=== PATIENT | male | born 1945 | race Caucasian/White ===

== ENCOUNTER 2017-03-31 17:28 | Inpatient (IN) | payer OTHER, MEDICARE ==
[~2017-03-31] VITALS: Ht 172.7 cm; Wt 59.1 kg
[2017-03-31] VITALS (14 sets, daily range): BP systolic 78–143; BP diastolic 50–78; PULSE 56–85; RESP 15–22; TEMP 97.8; O2SAT 98–100
[2017-03-31] MEDS ORDERED: SODIUM CHLOR 0.9% 1000 ML INJ 1,000 ML IV ONE ×4 (17:40→18:45)
[2017-03-31] MEDS: HEPARIN SODIUM - IV 10,000 UNITS/10 ML VIAL IV STA ×2 (17:40→18:11)
[2017-03-31] MEDS ORDERED: SODIUM CHLORIDE 0.9% FLUSH 10 ML FLUSH IVF PRN ×2 (17:45)
--- NOTE | 2017-03-31 17:53 | PD ---
HPI Chief Complaint: COLLAPSED Time Seen by Provider: 17:40 History of Present Illness HPI WHILE AMBULATING WITH GIRLFRIEND PATIENT SEEMED TO JUST COLLAPSE, EMS RESPONDED AND DID CHEST COMPRESSIONS ON ARRIVAL, AND BROUGHT INTO ER Allergies-Medications (Allergen,Severity, Reaction): Coded Allergies: UNOBTAINABLE (Unverified , 03/31/17) S/P ARREST, UNABLE TO SPEAK Review of Systems ROS Limitations: Clinical Condition Except as stated in HPI: all other systems reviewed are Neg Physical Exam Narrative GENERAL: SKIN: Warm and dry. HEAD: Atraumatic. Normocephalic. EYES: Pupils equal and round. No scleral icterus. No injection or drainage. ENT: No nasal bleeding or discharge. Mucous membranes pink and moist. NECK: Trachea midline. No JVD. CARDIOVASCULAR: Regular rate and rhythm. RESPIRATORY: No accessory muscle use. Clear to auscultation. Breath sounds equal bilaterally. GASTROINTESTINAL: Abdomen soft, non-tender, nondistended. Hepatic and splenic margins not palpable. MUSCULOSKELETAL: Extremities without clubbing, cyanosis, or edema. No obvious deformities. NEUROLOGICALINITIALLY NOT RESPONSIVE BUT BREATHING SPONT, No obvious cranial nerve deficits. Motor grossly within normal limits. Five out of 5 muscle strength in the arms and legs. Normal speech. PSYCHIATRIC: Appropriate mood and affect; insight and judgment normal. Data Data Last Documented VS Vital Signs Date Time Temp Pulse Resp B/P Pulse Ox O2 Delivery O2 Flow Rate FiO2 03/31/17 17:30 98 3.00 Orders Troponin I (03/31/17 17:40) Ckmb (Isoenzyme) Profile (03/31/17 17:40) Complete Blood Count With Diff (03/31/17 17:40) I-Stat Profile (03/31/17 17:40) I-Stat Creatinine (03/31/17 17:40) Calcium (03/31/17 17:40) Magnesium (Mg) (03/31/17 17:40) Prothrombin Time / Inr (Pt) (03/31/17 17:40) Act Partial Throm Time (Ptt) (03/31/17 17:40) B-Type Natriuretic Peptide (03/31/17 17:40) Electrocardiogram (03/31/17 17:40) Oxygen Administration (03/31/17 17:40) Iv Access Insert/Monitor (03/31/17 17:40) Oximetry (03/31/17 17:40) Sodium Chlor 0.9% 1000 Ml Inj (Ns 1000 M (03/31/17 17:40) Sodium Chloride 0.9% Flush (Ns Flush) (03/31/17 17:45) Chest, Single Ap (03/31/17 17:40) Electrocardiogram (03/31/17 17:40) Sodium Chlor 0.9% 1000 Ml Inj (Ns 1000 M (03/31/17 17:40) Sodium Chloride 0.9% Flush (Ns Flush) (03/31/17 17:45) Heparin Inj (Heparin Inj) (03/31/17 17:40) Naloxone Inj (Narcan Inj) (03/31/17 18:00) Ct Brain W/O Iv Contrast(Rout) (03/31/17 ) Sodium Chlor 0.9% 1000 Ml Inj (Ns 1000 M (03/31/17 18:15) ^ Infusion (03/31/17 ) Dopamine Inj Premix (Dopamine Inj Premix (03/31/17 18:15) Terbutaline Inj (Brethine Inj) (03/31/17 18:15) Sodium Chlor 0.9% 1000 Ml Inj (Ns 1000 M (03/31/17 18:45) Labs Laboratory Tests Test 03/31/17 17:35 White Blood Count 11.3 TH/MM3 Red Blood Count 4.36 MIL/MM3 Hemoglobin 12.7 GM/DL Bedside Hemoglobin 13.3 G/DL Hematocrit 38.0 % Bedside Hematocrit 39.0 % Mean Corpuscular Volume 87.0 FL Mean Corpuscular Hemoglobin 29.2 PG Mean Corpuscular Hemoglobin 33.6 % Concent Red Cell Distribution Width 14.3 % Platelet Count 232 TH/MM3 Mean Platelet Volume 8.6 FL Neutrophils (%) (Auto) 73.3 % Lymphocytes (%) (Auto) 17.9 % Monocytes (%) (Auto) 7.7 % Eosinophils (%) (Auto) 0.7 % Basophils (%) (Auto) 0.4 % Neutrophils # (Auto) 8.3 TH/MM3 Lymphocytes # (Auto) 2.0 TH/MM3 Monocytes # (Auto) 0.9 TH/MM3 Eosinophils # (Auto) 0.1 TH/MM3 Basophils # (Auto) 0.0 TH/MM3 CBC Comment DIFF FINAL Differential Comment Prothrombin Time 11.4 SEC Prothromb Time International 1.0 RATIO Ratio Activated Partial 24.8 SEC Thromboplast Time Bedside Sodium 139 MMOL/L Bedside Potassium 3.6 MMOL/L Bedside Chloride 101 MMOL/L Bedside Blood Urea Nitrogen 17 MG/DL Bedside Creatinine 2.6 MG/DL Bedside Glucose 186 MG/DL [facility] Medical Decision Making Medical Screen Exam Complete: Yes Emergency Medical Condition: Yes Medical Record Reviewed: Yes Interpretation(s) NSR 82, [place] ON V1-V3 MOST LIKE J POINT ELEVATION, NO OPPOSITE ST DEPRESSIONS NOTED. Differential Diagnosis AMS V OPIATE OD V STEMI V ICH V ELECTROLYTE ABNL Narrative Course PATIENT WAS SIGNED OUT TO DR CHOWDHURY PENDING LABS/AND REEVALUATION (PATIENT HAS A GCS OF 14 TO 15 AFTER NARCAN GIVEN, AND THUS IS NOT A CODE COOL CANDIDATE) Critical Care Narrative CRITICAL CARE NOTE: With evaluation of the patient, labs, EKG, receipt of radiologic studies, administration of medications, reevaluation the patient and discussion of the patient with the admitting physicians, the total critical care time was [60] minutes. Time to perform other separately billable procedures was not included in the critical care time. Physician Communication Physician Communication CALLED STEMI ALERT AND DR DURANT CAME TO BEDSIDE, REVIEWED EKG AND DECIDED TO HOLD OFF ON CATH FOR NOW...PATIENT WAS MORE AWARE AFTER NARCAN GIVEN, PT CONTINUES TO BREATH SPONTANEOUSLY AND GUARD HIS AIRWAY WELL, NOW ABLE TO SAY HIS NAME (CODEY) BUT IS STILL A BIT SLOW IN RESPONDING Diagnosis Primary Impression: S/P CARDIOPULMONRY ARREST WITH ROSC Admitting Information Admitting Physician Requests: Admit Stewart Saha MD Mar 31, 2017 17:53
[2017-03-31] MEDS ORDERED: NALOXONE HCL 2 MG/2 ML VIAL IV PUSH ONE (18:00)
--- NOTE | 2017-03-31 18:01 | RADRPT ---
EXAM DATE/TIME: 03/31/2017 17:33 [facility] COMPARISON: No previous studies available for comparison. INDICATIONS : Stemi alert. MEDICAL HISTORY : None. SURGICAL HISTORY : None. ENCOUNTER: Initial ACUITY: 1 day PAIN SCORE: Non-responsive. LOCATION: Bilateral chest FINDINGS: A single view of the chest demonstrates the lungs to be symmetrically aerated without evidence of mas s, infiltrate or effusion. Tortuous thoracic aorta. The cardiomediastinal contours are unremarkable. Osseous structures are intact. CONCLUSION: No acute disease. Aaron Mcghee MD on March 31, 2017 at 17:59 Board Certified Radiologist. This report was verified electronically.
[2017-03-31] MEDS ORDERED: DOPamine INJ PREMIX 500 ML IV SCH (18:15)
[2017-03-31] MEDS ORDERED: TERBUTALINE INJ 1 MG/ML AMP SQ PRN (18:15)
[2017-03-31 18:24] LABS: I-STAT POTASSIUM 3.6 MMOL/L (3.5-4.9); I-STAT SODIUM 139 MMOL/L (138-146)
[2017-03-31 18:27] LABS: AUTOMATED NEUTROPHIL # 8.3 TH/MM3 (1.8-7.7); BASOPHIL % 0.4 % (0.0-2.0); EOSINOPHIL # 0.1 TH/MM3 (0-0.4); EOSINOPHIL % 0.7 % (0.0-4.0); HEMO FLAGS DIFF FINAL; LYMPH % 17.9 % (9.0-44.0); MEAN CORPUSCULAR HEMOGLOBIN 29.2 PG (27.0-34.0); MEAN CORPUSCULAR HGB CONC 33.6 % (32.0-36.0); MONO % 7.7 % (0.0-8.0); NEUT % 73.3 % (16.0-70.0); PLATELET COUNT 232 TH/MM3 (150-450); RED BLOOD COUNT 4.36 MIL/MM3 (4.50-5.90); RED CELL DISTRIBUTION WIDTH 14.3 % (11.6-17.2); WHITE BLOOD COUNT 11.3 TH/MM3 (4.0-11.0)
[2017-03-31 18:33] LABS: APTT (PATIENT) 24.8 SEC (24.3-30.1); PROTHROMBIN TIME - PATIENT 11.4 SEC (9.8-11.6)
[2017-03-31 18:59] LABS: MAGNESIUM 2.3 MG/DL (1.5-2.5)
[2017-03-31 19:02] LABS: CREATINE KINASE 133 U/L (39-308)
--- NOTE | 2017-03-31 19:06 | RADRPT ---
EXAM DATE/TIME: 03/31/2017 18:56 [facility] COMPARISON: No previous studies available for comparison. INDICATIONS : Altered mental status. RADIATION DOSE: 33.03 CTDIvol (mGy) MEDICAL HISTORY : Non-responsive. SURGICAL HISTORY : Non-responsive. ENCOUNTER: Initial ACUITY: 1 day PAIN SCALE: Non-responsive LOCATION: cranial TECHNIQUE: Multiple contiguous axial images were obtained of the head. Using automated exposure control and adj ustment of the mA and/or kV according to patient size, radiation dose was kept as low as reasonably a chievable to obtain optimal diagnostic quality images. DICOM format image data is available electro nically for review and comparison. FINDINGS: CEREBRUM: Scattered areas of low attenuation in the periventricular white matter greater in the left frontal lo be. The ventricles are normal for age. No evidence of midline shift, mass lesion, hemorrhage or acut e infarction. No extra-axial fluid collections are seen. POSTERIOR FOSSA: The cerebellum and brainstem are intact. The 4th ventricle is midline. The cerebellopontine angle i s unremarkable. Sphenoid sinus disease. EXTRACRANIAL: The visualized portion of the orbits is intact. SKULL: The calvaria is intact. No evidence of skull fracture. CONCLUSION: 1. Nonspecific white matter changes. 2. Sphenoid sinusitis. Aaron Mcghee MD on March 31, 2017 at 19:03 Board Certified Radiologist. This report was verified electronically.
--- NOTE | 2017-03-31 19:09 | PD ---
Physical Exam Narrative General: The patient is a well-developed well-nourished male in no acute distress, drowsy on my initial examination. Head and Neck exam: Head is normocephalic atraumatic. Eyes: EOMI, pupils are equal round and reactive to light. Nose: Midline septum with pink mucous membranes Mouth: Dentition unremarkable. Moist mucus membranes. Posterior oropharynx is not erythematous. No tonsillar hypertrophy. Uvula midline. Airway patent. Neck: No palpable lymphadenopathy. No nuchal rigidity. No thyromegaly. Cardiovascular: Regular rate and rhythm without murmurs, gallops, or rubs. Lungs: Clear to auscultation bilaterally. No wheezes, rhonchi, or rales. Abdomen: Soft, without tenderness to palpation in all 4 quadrants of the abdomen. No guarding, rebound, or rigidity. Normal bowel sounds are audible. No tenderness on palpation of McBurney's point. Negative Wilberforce sign. Extremities: No clubbing, cyanosis, or edema. 2+ pulses in all 4 extremities. No calf tenderness on palpation. No extremity tenderness on palpation or deformity. The patient has full range of motion of his extremities. Back: No costovertebral angle tenderness to palpation. Neurologic Exam: Cranial nerves 2-12 were intact on exam. Strength is 5/5 in all 4 extremities. No sensory deficits noted. The patient is oriented to person, place, time, and situation. The patient is slightly drowsy on my initial examination. Skin Exam: No rash noted. Intact skin that is warm and dry. Data Data Last Documented VS Vital Signs Date Time Temp Pulse Resp B/P Pulse Ox O2 Delivery O2 Flow Rate FiO2 03/31/17 19:45 62 18 101/57 100 03/31/17 17:55 Nasal Cannula 3 03/31/17 17:35 97.8 Orders Troponin I (03/31/17 17:40) Ckmb (Isoenzyme) Profile (03/31/17 17:40) Complete Blood Count With Diff (03/31/17 17:40) I-Stat Profile (03/31/17 17:40) I-Stat Creatinine (03/31/17 17:40) Calcium (03/31/17 17:40) Magnesium (Mg) (03/31/17 17:40) Prothrombin Time / Inr (Pt) (03/31/17 17:40) Act Partial Throm Time (Ptt) (03/31/17 17:40) B-Type Natriuretic Peptide (03/31/17 17:40) Electrocardiogram (03/31/17 17:40) Oxygen Administration (03/31/17 17:40) Iv Access Insert/Monitor (03/31/17 17:40) Oximetry (03/31/17 17:40) Sodium Chlor 0.9% 1000 Ml Inj (Ns 1000 M (03/31/17 17:40) Sodium Chloride 0.9% Flush (Ns Flush) (03/31/17 17:45) Chest, Single Ap (03/31/17 17:40) Sodium Chlor 0.9% 1000 Ml Inj (Ns 1000 M (03/31/17 17:40) Sodium Chloride 0.9% Flush (Ns Flush) (03/31/17 17:45) Heparin Inj (Heparin Inj) (03/31/17 17:40) Naloxone Inj (Narcan Inj) (03/31/17 18:00) Ct Brain W/O Iv Contrast(Rout) (03/31/17 ) Sodium Chlor 0.9% 1000 Ml Inj (Ns 1000 M (03/31/17 18:15) ^ Infusion (03/31/17 ) Dopamine Inj Premix (Dopamine Inj Premix (03/31/17 18:15) Terbutaline Inj (Brethine Inj) (03/31/17 18:15) Sodium Chlor 0.9% 1000 Ml Inj (Ns 1000 M (03/31/17 18:45) CKMB (03/31/17 17:35) CKMB% (03/31/17 17:35) B-Type Natriuretic Peptide (03/31/17 19:24) Blood Culture (03/31/17 19:24) C-Reactive Protein (Crp) (03/31/17 19:24) Hepatic Functional Panel (03/31/17 19:24) Urinalysis - C+S If Indicated (03/31/17 19:24) Ecg Monitoring (03/31/17 19:24) Urinary Catheter Insert/Apply (03/31/17 19:24) Drug Screen, Random Urine (03/31/17 19:24) Alcohol (Ethanol) (03/31/17 19:24) Salicylates (Aspirin) (03/31/17 19:24) Tylenol (Acetaminophen) (03/31/17 19:24) Lactic Acid Sepsis Protocol (03/31/17 19:24) Admit Order (Ed Use Only) (03/31/17 19:51) Labs Laboratory Tests Test 03/31/17 03/31/17 17:35 19:37 White Blood Count 11.3 TH/MM3 Red Blood Count 4.36 MIL/MM3 Hemoglobin 12.7 GM/DL Bedside Hemoglobin 13.3 G/DL Hematocrit 38.0 % Bedside Hematocrit 39.0 % Mean Corpuscular Volume 87.0 FL Mean Corpuscular Hemoglobin 29.2 PG Mean Corpuscular Hemoglobin 33.6 % Concent Red Cell Distribution Width 14.3 % Platelet Count 232 TH/MM3 Mean Platelet Volume 8.6 FL Neutrophils (%) (Auto) 73.3 % Lymphocytes (%) (Auto) 17.9 % Monocytes (%) (Auto) 7.7 % Eosinophils (%) (Auto) 0.7 % Basophils (%) (Auto) 0.4 % Neutrophils # (Auto) 8.3 TH/MM3 Lymphocytes # (Auto) 2.0 TH/MM3 Monocytes # (Auto) 0.9 TH/MM3 Eosinophils # (Auto) 0.1 TH/MM3 Basophils # (Auto) 0.0 TH/MM3 CBC Comment DIFF FINAL Differential Comment Prothrombin Time 11.4 SEC Prothromb Time International 1.0 RATIO Ratio Activated Partial 24.8 SEC Thromboplast Time Bedside Sodium 139 MMOL/L Bedside Potassium 3.6 MMOL/L Bedside Chloride 101 MMOL/L Bedside Blood Urea Nitrogen 17 MG/DL Bedside Creatinine 2.6 MG/DL Bedside Glucose 186 MG/DL Calcium Level 8.5 MG/DL Magnesium Level 2.3 MG/DL Total Creatine Kinase 133 U/L Creatine Kinase MB 0.8 NG/ML Troponin I LESS THAN 0.02 NG/ML B-Type Natriuretic Peptide 6 PG/ML Urine Color YELLOW Urine Turbidity HAZY Urine pH 6.5 Urine Specific [place] 1.020 Urine Protein 100 mg/dL Urine Glucose (UA) NEG mg/dL Urine Ketones NEG mg/dL Urine Occult Blood TRACE Urine Nitrite NEG Urine Bilirubin NEG Urine Urobilinogen 4.0 MG/DL Urine Leukocyte Esterase MOD Urine RBC 9 /hpf Urine WBC 31 /hpf Urine Squamous Epithelial 3 /hpf Cells Urine Transitional Epithelial 1 /hpf Cells Urine Amorphous Sediment RARE Urine Hyaline Casts 74 /lpf Urine Mucus FEW /lpf Microscopic Urinalysis Comment CULTURE INDICATED Lactic Acid Level 1.7 mmol/L Total Bilirubin 0.5 MG/DL Direct Bilirubin 0.1 MG/DL Indirect Bilirubin 0.4 MG/DL Aspartate Amino Transf 16 U/L (AST/SGOT) Alanine Aminotransferase 15 U/L (ALT/SGPT) Alkaline Phosphatase 69 U/L C-Reactive Protein 0.79 MG/DL Total Protein 6.5 GM/DL Albumin 3.2 GM/DL Salicylates Level LESS THAN 1.7 MG/DL Urine Opiates Screen NEG Acetaminophen Level LESS THAN 2.0 MCG/ML Urine Barbiturates Screen NEG Urine Amphetamines Screen NEG Urine Benzodiazepines Screen NEG Urine Cocaine Screen POS Urine Cannabinoids Screen POS Ethyl Alcohol Level LESS THAN 3 MG/DL MDM Medical Record Reviewed: Yes Supervised Visit with COLE: No Interpretation(s) Last Impressions Chest X-Ray 03/31/17 1740 Signed Impressions: Service Date/Time: Friday, March 31, 2017 17:33 - CONCLUSION: No acute disease. Aaron Mcghee MD Head CT 03/31/17 0000 Signed Impressions: Service Date/Time: Friday, March 31, 2017 18:56 - CONCLUSION: 1. Nonspecific white matter changes. 2. Sphenoid sinusitis. Aaron Mcghee MD Narrative Course During the course of the patients emergency department visit, the patients history, examination, and differential diagnosis were reviewed with the patient. The patient had IV access obtained and blood work sent for analysis. The patient's case was checked out to me by Dr. Saha at the conclusion of his shift. Please see his complete history and physical. The patient reportedly collapsed while walking with his girlfriend. Chest compressions were provided. According to Dr. Saha, no initial rhythm was identified or reported to him. The patient had a return of spontaneous circulation and was diagnosed with a STEMI. The patient arrived in the emergency department and was evaluated by , the demand planning manager on-call. The patient was lethargic on arrival with pinpoint pupils and Narcan was administered. The patient had some improvement in his mentation. The patient denied having any chest pain prior to the collapse. Further workup ensued prior to the patient having urgent cardiac catheterization per the request of Dr. jones. The patient's initial blood pressure was noted to be 70 systolic. The patient's blood pressure began to improve after a single liter of normal saline IV fluids, a second liter was started by Dr. Saha. The patient was initially provided normal saline 1 L IV fluid bolus. The patients laboratory studies were reviewed and remarkable for a CBC that shows a white count of 11.3, hemoglobin 12.7, platelets 232 with 73.3 neutrophils, i-STAT reveals a sodium of 139, potassium 3.6, chloride 101, BUN 17 , creatinine 2.6, glucose 186, magnesium 2.3, CPK 133, troponin I less than 0.02 , BNP is 6, PT 11.4, PTT 24.8. C-reactive protein is 0.79, LFTs within normal limits, abdomen 3.2, urinalysis shows trace occult blood, 4 urobilinogen, moderate leukocyte esterase, 9 rbc's, 31 WBCs this is a catheterized specimen, culture indicated. The patient was given Rocephin 1 g IV. Urine drug screen is positive for cocaine and cannabinoids. Salicylate less than 1.7, acetaminophen less than 2, alcohol less than 3. Radiology studies were reviewed and remarkable for a chest x-ray that shows no acute cardiopulmonary disease. A CT scan of the brain she has not specific white matter changes, sphenoid sinusitis. No other acute abnormality. The patients results were discussed with the patient, including the plan of care. I explained that further testing and/ or monitoring is indicated based on the patients history, examination, and/ or laboratory findings. Therefore, I recommended admission for additional evaluation. The patient expressed understanding and was agreeable with this plan. The patient was admitted to the hospital in guarded condition and sent to a bed under the care of the [facility].. Diagnosis Primary Impression: S/P CARDIOPULMONRY ARREST WITH ROSC Admitting Information Admitting Physician Requests: Admit Scripts Unable to Obtain Active Prescriptions or Reported Meds Chacha Wilson MD Mar 31, 2017 19:09
[2017-03-31 19:18] LABS: CKMB 0.8 NG/ML (0.5-3.6)
[2017-03-31 20:30] LABS: BLOOD, URINE TRACE (NEG); COMMENT (UR) CULTURE INDICATED; CULTURE IF INDICATED CULTURE INDICATED; GLUCOSE,URINE NEG (NEG); HYALINE CAST, URINE 74 /lpf (RARE); KETONE, URINE NEG (NEG); MUCUS URINE FEW /lpf (OCC); NITRITE,URINE NEG (NEG); PH, URINE 6.5 (5.0-8.5); SQUAMOUS EPITHELIAL CELL URINE 3 /hpf (0-5); TRANSITIONAL EPI CELLS, URINE 1 /hpf; URINE COLOR YELLOW (YELLW/STRAW)
[2017-03-31 20:32] LABS: AMPHETAMINE, URINE NEG (NEG); BARBITURATES, URINE NEG (NEG); COCAINE, URINE POS (NEG)
[2017-03-31 20:42] LABS: ALT (GPT) 15 U/L (12-78); AST (GOT) 16 U/L (15-37)
[2017-03-31 20:44] LABS: ACETAMINOPHEN LESS THAN 2.0 MCG/ML (10.0-30.0); ALKALINE PHOSPHATASE 69 U/L (45-117); INDIRECT BILIRUBIN 0.4 MG/DL (0.0-0.8); TOTAL BILIRUBIN ADULT 0.5 MG/DL (0.2-1.0)
[2017-03-31 21:01] LABS: APTT (PATIENT) 25.1 SEC (24.3-30.1)
[2017-03-31] MEDS ORDERED: cefTRIAXone INJ 1,000 MG in SODIUM CHLORIDE 0.9% INJ 100 ML IV ONE (21:30)
[2017-03-31] MEDS ORDERED: SODIUM CHLORIDE 0.9% FLUSH 10 ML FLUSH IV FLUSH PRN (22:30)
[2017-03-31] MEDS ORDERED: NALOXONE HCL 0.4 MG/ML AMP IV PRN (22:30)
--- NOTE | 2017-04-01 00:43 | HHI.HP ---
[facility] No Primary Care Physician Admission Diagnosis S/P ARREST WITH ROSC Diagnoses: Travel History International Travel<30 Days: No Contact w/Intl Traveler <30 Da: No Traveled to Known Affected Are: No History of Present Illness name: Killian SOTELO 71 yo History from ER physician communication, and review of medical records. Patient reported that he cannot remember what happened. He reports that he was walking out of a store with his girlfriend. After that, he doesn't know anything. As per ER report, patient and his girlfriend were walking on the street and somehow he had collapsed. EMS had performed CPR on him on the field but he immediately regained pulse en route to year. By the time he was in ER, he was mostly awake and alert although looked quite so dizzy. There was a 1 times dose of Narcan given in ER after which she was completely back to normal. Per ER evaluation, patient also was showing anterior ST elevations without any reciprocal changes and STEMI alert was therefore called. Solderer Barrel Ribs had examined patient at the bedside in ER and to determine that this was not consistent with STEMI. Medical team was several contacted for further evaluation. Patient closely that he does not remember anything. However he does report to me that he has history of seizure disorder. He admits to using marijuana, cocaine, and K2. He reports to me that his real name is Killian Sotelo and that he is 71 years old and that he had similar episodes twice this month and was at our emergency room. He denies drinking alcohol on a routine basis. Denies using any benzodiazepines on the streets. His only complaint at this point is chest pain which is worsened with any movement. He states that this only started after receiving CPR. The pain is even worse any time he moved his legs or arms. Apart from the above, patient denies any recent fever/nausea/vomiting/diarrhea/ urinary burning or pain on urination. He reports that he was diagnosed with UTI in his previous visits this month to ER. But he is not on any antibiotics. Denies any hematemesis/hematochezia/melena/hematuria. Review of Systems Except as stated in HPI: all other systems reviewed are Neg Past Family Social History Past Medical History smoking [- maybe copd hep c treated bph hyperlipidemia seizures- maybe withdrawal Past Surgical History left knee many years ago cant remember other surgeries Allergies: Coded Allergies: No Known Allergies (Unverified , 04/01/17) Family History he is adopted and does not know Social History 1 pack a day denies drinking etoh on a daily basis, states only on birthdays etc denies iv drug abuse - smokes cocaine sometimes, uses marijuana and k2 sometimes Physical Exam Vital Signs Vital Signs Date Time Temp Pulse Resp B/P Pulse Ox O2 Delivery O2 Flow Rate FiO2 03/31/17 22:00 56 16 143/78 100 03/31/17 21:00 62 16 104/58 99 03/31/17 20:00 62 16 103/60 100 03/31/17 19:45 62 18 101/57 100 03/31/17 19:15 68 18 99/64 100 03/31/17 19:00 76 100/64 03/31/17 18:45 78 80/55 03/31/17 18:30 76 88/53 03/31/17 18:15 76 86/50 Automatic Cuff 03/31/17 18:00 78 86/52 03/31/17 17:55 80 15 78/50 98 Nasal Cannula 3 03/31/17 17:50 82 16 90/65 03/31/17 17:40 85 22 100 Bag Valve 15 03/31/17 17:40 99 Nasal Cannula 3 03/31/17 17:35 97.8 85 22 126/77 99 03/31/17 17:30 98 3.00 Physical Exam GENERAL: This is a well-nourished, well-developed patient, in no apparent distress. SKIN: No rashes, ecchymoses or lesions. Cool and dry. HEAD: Atraumatic. Normocephalic. No temporal or scalp tenderness. EYES: No scleral icterus. No injection or drainage. ENT: Nose without bleeding, purulent drainage or septal hematoma. Airway patent. NECK: Trachea midline. No JVD CARDIOVASCULAR: Regular rate and rhythm without murmurs, gallops, or rubs. RESPIRATORY: Clear to auscultation. Breath sounds equal bilaterally. No wheezes , rales, or rhonchi. GASTROINTESTINAL: Abdomen soft, non-tender, nondistended. No guarding. MUSCULOSKELETAL: Extremities without clubbing, cyanosis, or edema. No calf asymmetry or edema. Neuro: Awake, alert, oriented. No focal deficits. NEUROLOGICAL: Awake and alert. Cranial nerves II through XII intact. Motor and sensory grossly within normal limits. Five out of 5 muscle strength in all muscle groups. Normal speech.No joint tenderness, effusion, or edema noted. No calf tenderness. Laboratory Laboratory Tests Test 03/31/17 03/31/17 03/31/17 17:35 19:37 20:08 White Blood Count 11.3 Red Blood Count 4.36 Hemoglobin 12.7 Bedside Hemoglobin 13.3 Hematocrit 38.0 Bedside Hematocrit 39.0 Mean Corpuscular Volume 87.0 Mean Corpuscular Hemoglobin 29.2 Mean Corpuscular Hemoglobin 33.6 Concent Red Cell Distribution Width 14.3 Platelet Count 232 Mean Platelet Volume 8.6 Neutrophils (%) (Auto) 73.3 Lymphocytes (%) (Auto) 17.9 Monocytes (%) (Auto) 7.7 Eosinophils (%) (Auto) 0.7 Basophils (%) (Auto) 0.4 Neutrophils # (Auto) 8.3 Lymphocytes # (Auto) 2.0 Monocytes # (Auto) 0.9 Eosinophils # (Auto) 0.1 Basophils # (Auto) 0.0 CBC Comment DIFF FINAL Differential Comment Prothrombin Time 11.4 Prothromb Time International 1.0 Ratio Activated Partial 24.8 25.1 Thromboplast Time Bedside Sodium 139 Bedside Potassium 3.6 Bedside Chloride 101 Bedside Blood Urea Nitrogen 17 Bedside Creatinine 2.6 Bedside Glucose 186 Calcium Level 8.5 Magnesium Level 2.3 Total Creatine Kinase 133 Creatine Kinase MB 0.8 Troponin I LESS THAN 0.02 B-Type Natriuretic Peptide 6 28 Urine Color YELLOW Urine Turbidity HAZY Urine pH 6.5 Urine Specific [place] 1.020 Urine Protein 100 Urine Glucose (UA) NEG Urine Ketones NEG Urine Occult Blood TRACE Urine Nitrite NEG Urine Bilirubin NEG Urine Urobilinogen 4.0 Urine Leukocyte Esterase MOD Urine RBC 9 Urine WBC 31 Urine Squamous Epithelial 3 Cells Urine Transitional Epithelial 1 Cells Urine Amorphous Sediment RARE Urine Hyaline Casts 74 Urine Mucus FEW Microscopic Urinalysis Comment CULTURE INDICATED Lactic Acid Level 1.7 Total Bilirubin 0.5 Direct Bilirubin 0.1 Indirect Bilirubin 0.4 Aspartate Amino Transf 16 (AST/SGOT) Alanine Aminotransferase 15 (ALT/SGPT) Alkaline Phosphatase 69 C-Reactive Protein 0.79 Total Protein 6.5 Albumin 3.2 Salicylates Level LESS THAN 1.7 Urine Opiates Screen NEG Acetaminophen Level LESS THAN 2.0 Urine Barbiturates Screen NEG Urine Amphetamines Screen NEG Urine Benzodiazepines Screen NEG Urine Cocaine Screen POS Urine Cannabinoids Screen POS Ethyl Alcohol Level LESS THAN 3 Date/Time Procedure Status Source Growth 03/31/17 19:37 Urine Culture Received Urine Random Urine Pending 03/31/17 19:37 Aerobic Blood Culture Received Blood Peripheral Pending 03/31/17 19:37 Anaerobic Blood Culture Received Blood Peripheral Pending Result Diagram: 03/31/17 1735 Imaging Last 48 hours Impressions Chest X-Ray 03/31/17 1740 Signed Impressions: Service Date/Time: Friday, March 31, 2017 17:33 - CONCLUSION: No acute disease. Aaron Mcghee MD Head CT 03/31/17 0000 Signed Impressions: Service Date/Time: Friday, March 31, 2017 18:56 - CONCLUSION: 1. Nonspecific white matter changes. 2. Sphenoid sinusitis. Aaron Mcghee MD Assessment and Plan Assessment and Plan Impression: out of hospital cpr on the field likely seizures from k2 use st elevation without reciprocal change chest pain post cpr hyperlipidemia- on statin at home possible copd per patient bph- on finasteride seizure dx hepatitis c - treated Plan: tele monitroing serial enzymes and ekg k2 cessation counselled seizure precautions Hospital records from this month hospitalization and ER visit and her patient's real name Killian Sotelo 71 years oldreviewed. Urine cultures were negative. His UA today was also positive although he was asymptomatic. We will not give antibiotics. DVT prophylaxiswith Lovenox. GI prophylaxis on pantoprazole. Discussed Condition With Patient, ER physician, nursing staff Physician Certification 2 Midnight Certification Type: Admission for Inpatient Services Order for Inpatient Services The services are ordered in accordance with Medicare regulations or non- Medicare payer requirements, as applicable. In the case of services not specified as inpatient-only, they are appropriately provided as inpatient services in accordance with the 2-midnight benchmark. Estimated LOS (days): 2 days is the estimated time the patient will need to remain in the hospital, assuming treatment plan goals are met and no additional complications. Post-Hospital Plan: Home Deisy Gorman MD Apr 01, 2017 00:43
[2017-04-01 01:25] VITALS: BP 148/77; PULSE 52; RESP 16; O2SAT 96
[2017-04-01] MEDS ORDERED: IBUPROFEN 600 MG TAB PO PRN (04:00)
[2017-04-01 04:15] VITALS: BP 125/56; PULSE 56; RESP 18; TEMP 97; O2SAT 95
[2017-04-01 04:47] LABS: AUTOMATED NEUTROPHIL # 6.6 TH/MM3 (1.8-7.7); BASOPHIL % 0.5 % (0.0-2.0); EOSINOPHIL % 0.4 % (0.0-4.0); HEMATOCRIT 33.2 % (39.0-51.0); HEMO FLAGS DIFF FINAL; LYMPH % 21.8 % (9.0-44.0); LYMPHOCYTE # 2.1 TH/MM3 (1.0-4.8); MEAN CELL VOLUME 86.9 FL (80.0-100.0); MEAN CORPUSCULAR HEMOGLOBIN 29.8 PG (27.0-34.0); MEAN CORPUSCULAR HGB CONC 34.3 % (32.0-36.0); NEUT % 69.3 % (16.0-70.0); PLATELET COUNT 180 TH/MM3 (150-450); RED BLOOD COUNT 3.83 MIL/MM3 (4.50-5.90); RED CELL DISTRIBUTION WIDTH 14.7 % (11.6-17.2); WHITE BLOOD COUNT 9.6 TH/MM3 (4.0-11.0)
[2017-04-01 05:05] LABS: ANION GAP 7 MEQ/L (5-15); AST (GOT) 12 U/L (15-37); BICARBONATE 22.9 MEQ/L (21.0-32.0); BLOOD UREA NITROGEN 19 MG/DL (7-18); CHLORIDE 110 MEQ/L (98-107); GLOMERULAR FILTRATION RATE 33 ML/MIN (>89); POTASSIUM 3.6 MEQ/L (3.5-5.1); SODIUM (NA) 140 MEQ/L (136-145)
[2017-04-01 05:06] LABS: ALT (GPT) 13 U/L (12-78)
[2017-04-01 05:09] LABS: ALKALINE PHOSPHATASE 60 U/L (45-117); CREATINE KINASE 172 U/L (39-308); TOTAL BILIRUBIN ADULT 0.2 MG/DL (0.2-1.0)
[2017-04-01 08:03] VITALS: BP 126/59; PULSE 54; RESP 20; TEMP 97.9; O2SAT 95
[2017-04-01] MEDS ORDERED: PANTOPRAZOLE SOD 40 MG DELAYED RELEASE TAB PO SCH (09:00)
[2017-04-01] MEDS ORDERED: SODIUM CHLORIDE 0.9% FLUSH 10 ML FLUSH IV FLUSH SCH (09:00)
[2017-04-01] MEDS ORDERED: ENOXAPARIN SODIUM 40 MG/0.4 ML SYRINGE SQ SCH (09:00)
[2017-04-01 12:42] VITALS: BP 130/74; PULSE 53; RESP 20; TEMP 97.9; O2SAT 97
--- NOTE | 2017-04-01 13:35 | HHI.PR ---
Subjective Remarks Follow up for possible cardiac arrest Patient stated that he is doing well. He stated that with breathing he does have chest pain which he thinks is due to the CPR. Denied any cough, shortness of breathing, chest pain, palpitation, lightheadedness/dizziness. Patient stated that he had the exact same thing happened last time which was due to his cocaine use. He feels like he is back to his baseline and is anxious to go home. Patient asked for clothes to go home in. Patient also found have bradycardia on the monitor. With ambulation he is asymptomatic. Objective Vitals Vital Signs Date Time Temp Pulse Resp B/P Pulse Ox O2 Delivery O2 Flow Rate FiO2 04/01/17 12:42 97.9 53 20 130/74 97 04/01/17 08:03 97.9 54 20 126/59 95 04/01/17 04:15 97.0 56 18 125/56 95 04/01/17 01:25 52 16 148/77 96 Room Air 03/31/17 22:00 56 16 143/78 100 03/31/17 21:00 62 16 104/58 99 03/31/17 20:00 62 16 103/60 100 03/31/17 19:45 62 18 101/57 100 03/31/17 19:15 68 18 99/64 100 03/31/17 19:00 76 100/64 03/31/17 18:45 78 80/55 03/31/17 18:30 76 88/53 03/31/17 18:15 76 86/50 Automatic Cuff 03/31/17 18:00 78 86/52 03/31/17 17:55 80 15 78/50 98 Nasal Cannula 3 03/31/17 17:50 82 16 90/65 03/31/17 17:40 85 22 100 Bag Valve 15 03/31/17 17:40 99 Nasal Cannula 3 03/31/17 17:35 97.8 85 22 126/77 99 03/31/17 17:30 98 Nasal Cannula 3.00 03/31/17 17:30 98 3.00 I/O 03/31/17 03/31/17 03/31/17 04/01/17 04/01/17 04/01/17 07:00 15:00 23:00 07:00 15:00 23:00 Intake Total 300 ml Output Total 650 ml Balance -350 ml Intake Oral 300 ml Output Urine Total 650 ml # Voids 0 1 # Bowel Movements 0 Result Diagram: 04/01/17 0420 04/01/17 0420 Other Results GENERAL: in NAD CARDIOVASCULAR: Regular rate and rhythm without murmurs, gallops, or rubs. RESPIRATORY: Breath sounds equal bilaterally. No accessory muscle use. GASTROINTESTINAL: Abdomen soft, non-tender, nondistended. MUSCULOSKELETAL: No cyanosis, or edema. BACK: Nontender without obvious deformity. No CVA tenderness. Imaging Last Impressions Chest X-Ray 03/31/17 1740 Signed Impressions: Service Date/Time: Friday, March 31, 2017 17:33 - CONCLUSION: No acute disease. Aaron Mcghee MD Head CT 03/31/17 0000 Signed Impressions: Service Date/Time: Friday, March 31, 2017 18:56 - CONCLUSION: 1. Nonspecific white matter changes. 2. Sphenoid sinusitis. Aaron Mcghee MD Medications and IVs Current Medications Sodium Chloride (NS 1000 ml Inj) 1,000 ml @ 0 mls/hr Q0M ONCE IV Last administered on 03/31/17 18:11; Start 03/31/17 at 17:40; Stop 03/31/17 at 17:49 ; Status DC Sodium Chloride 2 ml 2 ml UNSCH PRN IVF FLUSH AFTER USING IV ACCESS; Start at 17:45; Stop 03/31/17 at 22:34; Status DC Sodium Chloride (NS 1000 ml Inj) 1,000 ml @ 0 mls/hr Q0M ONCE IV Last administered on 03/31/17 18:09; Start 03/31/17 at 17:40; Stop 03/31/17 at 17:49 ; Status DC Sodium Chloride (NS Flush) 2 ml UNSCH PRN IVF FLUSH AFTER USING IV ACCESS; Start 03/31/17 at 17:45; Stop 03/31/17 at 22:34; Status DC Heparin Sodium (Porcine) (Heparin Inj) 5,000 units NOW STAT IV ; Start at 17:40; Stop 03/31/17 at 17:49; Status DC Naloxone HCl 2 mg 2 mg ONCE ONCE IV PUSH Last administered on 03/31/17 18:08 ; Start 03/31/17 at 18:00; Stop 03/31/17 at 18:01; Status DC Sodium Chloride 1,000 ml @ 999 mls/hr BOLUS ONCE IV Last administered on 03/31 20:07; Start 03/31/17 at 18:15; Stop 03/31/17 at 19:15; Status DC Dopamine HCl/ Dextrose (DOPamine INJ PREMIX) 500 ml @ 0 mls/hr TITRATE IV ; Start 03/31/17 at 18:15; Stop 04/01/17 at 00:49; Status DC Terbutaline Sulfate 1 mg 1 mg UNSCH PRN SQ For Extravasation; Start 03/31/17 at 18:15 Sodium Chloride 1,000 ml @ 999 mls/hr BOLUS ONCE IV Last administered on 03/31 20:07; Start 03/31/17 at 18:45; Stop 03/31/17 at 19:45; Status DC Ceftriaxone Sodium/Sodium Chloride (Rocephin Inj/NS Inj) 100 ml @ 200 mls/hr ONCE ONCE IV Last administered on 03/31/17 21:27; Start 03/31/17 at 21:30; Stop 03/31/17 at 21:59; Status DC Sodium Chloride (NS Flush) 2 ml UNSCH PRN IV FLUSH FLUSH AFTER USING IV ACCESS ; Start 03/31/17 at 22:30 Sodium Chloride (NS Flush) 2 ml BID IV FLUSH Last administered on 04/01/17 09: 00; Start 04/01/17 at 09:00 Naloxone HCl (Narcan Inj) 0.4 mg UNSCH PRN IV SEE LABEL COMMENTS; Start at 22:30 Ibuprofen (Motrin) 600 mg Q8H PRN PO pain 1-10; Start 04/01/17 at 04:00 Pantoprazole Sodium (Protonix) 40 mg DAILY PO Last administered on 04/01/17 08 :48; Start 04/01/17 at 09:00 Enoxaparin Sodium (Lovenox Inj) 40 mg Q24H SQ Last administered on 04/01/17 11 :01; Start 04/01/17 at 09:00 A/P Assessment and Plan Questionable cardiac arrest vs syncope -There no rhythm strip on field. Unsure if patient had a true cardiac arrest. Episode most likely occurred due to polysubstance abuse and cocaine. -At the moment patient is back to his baseline. Over telemetry he does have bradycardia which was not presented on prior admissions. -Patient stated that he had the sac same symptoms before after taking cocaine. -Troponin 2 negative. Will get one more troponin. Bradycardia -Comparison to prior admission and this is new. -Patient is asymptomatic. Will consult vice president business development. -Will get a 2-D echo. -Continue to monitor over telemetry. Polysubstance abuse with cocaine and marijuana -Education given. Patient stated that he understands but he stated he will continue to use cocaine because he is 71 years old and that he has no interest in stopping using cocaine. Even though it can result in . hyperlipidemia/BPH/hepatitis C treated/seizure disorder/COPD. -Continue with home medication. -Continue with statin. DVT prophylaxiswith Lovenox. GI prophylaxis on pantoprazole. Discharge Planning Once cleared by vice president business development patient could be discharged to home. Pending ECHO. Calista Lacey MD Apr 01, 2017 13:35
[2017-04-01 16:00] VITALS: BP 133/73; PULSE 58; RESP 20; TEMP 98; O2SAT 96
--- NOTE | 2017-04-01 20:53 | EKG ---
Date Performed: 03/31/2017 Time Performed: 23:45:58 PTAGE: 89 years EKG: SINUS BRADYCARDIA NONSPECIFIC ST & T-WAVE ABNORMALITY BORDERLINE ECG PREVIOUS TRACING : 03/31/2017 17.35 Compared to prior tracing no significant change DOCTOR: Colt Banks Interpretating Date/Time 04/01/2017 20:51:52
--- NOTE | 2017-04-01 20:58 | EKG ---
Date Performed: 03/31/2017 Time Performed: 21:16:27 PTAGE: 89 years EKG: SINUS BRADYCARDIA MARKED LEFT AXIS DEVIATION SEPTAL MYOCARDIAL INFARCTION ABNORMAL ECG PREVIOUS TRACING : 03/31/2017 17.35 Compared to prior tracing no significant change DOCTOR: Colt Banks Interpretating Date/Time 04/01/2017 20:57:28
--- NOTE | 2017-04-01 21:11 | EKG ---
Date Performed: 03/31/2017 Time Performed: 17:35:15 PTAGE: 89 years EKG: Sinus rhythm LEFT ANTERIOR FASCICULAR BLOCK SEPTAL MYOCARDIAL INFARCTION NO PREVIOUS TRACING DOCTOR: Colt Banks Interpretating Date/Time 04/01/2017 21:10:39
== END 2017-04-01 18:48 | disposition left against medical advice (07) | DRG 917 ==
LOC: NEPE 17:28 → EDBD 19:53 → NEDA 19:53 → N05B 04-01 01:58
PROVIDERS: ADMIT Family Medicine; ATTEND Family Medicine
DX: T50.994A Poisoning by other drugs, medicaments and biological substances, undetermined, initial encounter (principal); I46.9 Cardiac arrest, cause unspecified; R00.1 Bradycardia, unspecified; R56.9 Unspecified convulsions; J44.9 Chronic obstructive pulmonary disease, unspecified; E78.5 Hyperlipidemia, unspecified; N40.0 Benign prostatic hyperplasia without lower urinary tract symptoms; B19.20 Unspecified viral hepatitis C without hepatic coma; F14.10 Cocaine abuse, uncomplicated; F12.10 Cannabis abuse, uncomplicated
CPT/HCPCS: 51702; 70450; 71010; 80053; 80076; 80307; 81001; 82310; 82435; 82550; 82552; 82565; 82947; 83605; 83735; 83880; 84132; 84295; 84484; 84520; 85025; 85610; 85730; 86140; 87040; 87086; 93005; 96361; 96374; J0696; J1644; J1650; J2310; J7030